=== PATIENT | female | born 1990 ===

== ENCOUNTER 2016-07-16 05:50 | Inpatient (IN) | payer SELFPAY ==
[2016-07-16] VITALS (8 sets, daily range): BP systolic 110–130; BP diastolic 50–84
[~2016-07-16] VITALS: Ht 170.2 cm; Wt 117.2 kg
[2016-07-16] MEDS ORDERED: ONDANSETRON PF 4 MG/2 ML VIAL. IV PRN ×2 (08:45→12:00)
--- NOTE | 2016-07-16 08:52 | PDOC2 ---
JOSTIN COELLO TITLE INSURANCE EXAMINER 07/16/16 0852: CONSULT Date of Consult Date of Consult DATE: 07/16/16 TIME: 08:46 Reason for Consult Reason for Consult: cholelithiasis Referring Physician Referring Physician: [facility] ER Identification/Chief Complaint Chief Complaint abdominal pain Source Source: Chart review, Patient History of Present Illness Reason for Visit: Admitted wtih epigastric and RUQ pain for 3 days. Last night developed vomiting. Denies aggravated by eating, only relieving factor is pain medication. Denies similar pain in past. 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 No ALCOHOL: none Drugs: None Lives: with Family Current Medications Current Medications Current Medications Sodium Chloride 1,000 ml @ 100 mls/hr Q10H IV ; Start 07/16/16 at 08:45 Morphine Sulfate 2 mg PRN Q2HR PRN IV PAIN; Start 07/16/16 at 08:45 Ondansetron HCl (Zofran) 4 mg PRN Q6HRS PRN IV NAUSEA/VOMITING; Start 07/16/16 at 08:45 Allergies Allergies: Coded Allergies: No Known Drug Allergies (Unverified , 07/16/16) ROS General: No: Chills, Other (fevers ) PSYCHOLOGICAL ROS: No: Anxiety, Depression Eyes: No Blurry vision, No Double vision HEENT: No: Heacaches, Sore Throat Hematological and Lymphatic: No: Bleeding Problems, Blood Clots Respiratory: No: Cough, SOB with excertion Cardiovascular: No Chest Pain, No Palpitations Gastrointestinal: Yes Other (see hpi) Genitourinary: No Dysuria, No Hematuria Musculoskeletal: Yes Other (+ radiation of pain to back ), No Joint Pain, No Muscle Pain Neurological: No Confusion, No Numbness/Tingling Skin: No Mottling, No Pruritus Physical Exam General: Alert, Oriented X3, Cooperative, No acute distress HEENT: PERRLA, Mucous membr. moist/pink Lungs: Clear to auscultation, Normal air movement Heart: Regular rate, Normal S1, Normal S2, No murmurs Abdomen: Soft, Other (ND, obese abdomen, greatest tenderness to epigastric, however also tender to RUQ, LUQ) Extremities: No clubbing, No cyanosis Skin: No breakdown, No significant lesion Neuro: Normal speech, Sensation intact Psych/Mental Status: Mental status NL, Mood NL MUSCULOSKELETAL: No deformity, No swelling Assessment/Plan Assessment/Plan US reviewed from [facility]--symptomatic cholelithiasis with nonmobile stone in neck of GB, dilated CBD and thickened gallbladder wall morbid obesity with BMI 40.5 will plan lap hector NPO since 4 am TIN RATLIFF MD 07/16/16 1211: CONSULT Allergies Allergies: Coded Allergies: No Known Drug Allergies (Unverified , 07/16/16) Assessment/Plan Assessment/Plan Pt seen and examined independently by myself; 25 year old female who reported to ER with acute onset of RUQ pain, vomiting. Pt has never had prior attacks. ER evaluation included a sonogram consistent with cholecystitis. PMH/PSH/ROS/ SH as above; exam: alert, oriented, drowsy from pain meds, no scleral icterus , neck supple, heart RR and R, lungs clear, abdomen morbidly obese, soft, tender RUQ with guarding, no masses, ext neg for edema or deformity, neuro motor function grossly intact all 4 extremities. Labs and sono reviewed; A/P) Calculous cholecystitis, ?bile duct dilation, recommend lap hector with cholangiogram. I discussed the details and risks of surgery with the patient. She understands and would like to proceed. JOSTIN COELLO APRN Jul 16, 2016 08:52 TIN RATLIFF MD Jul 16, 2016 12:11
[2016-07-16] MEDS: MORPHINE SULFATE 2 MG/ML DISP.SYRIN. IV PRN ×3 (09:16→16:14)
[2016-07-16] MEDS: IV NORMAL SALINE 1000ML BAG 1,000 ML IV SCH ×2 (09:17→18:20)
[2016-07-16 09:29] LABS: BASO % 0 % (0-3); EOS % 0 % (0-3); HEMATOCRIT 37.1 % (36.0-47.0); HEMOGLOBIN 12.7 g/dL (12.0-15.5); LYMPH # 1.2 x10^3/uL (1.0-4.8); LYMPH % 10 % (24-48); MEAN CORPUSCULAR HEMOGLOBIN 29 pg (25-35); MEAN CORPUSCULAR HGB CONC 34 g/dL (31-37); MEAN CORPUSCULAR VOLUME 84 fL (79-100); MONO % 6 % (0-9); NEUT % 84 % (31-73); PLATELET COUNT 163 x10^3/uL (140-400); RED BLOOD COUNT 4.41 x10^6/uL (3.50-5.40); RED CELL DISTRIBUTION WIDTH 12.7 % (11.5-14.5); WHITE BLOOD COUNT 11.9 x10^3/uL (4.0-11.0)
[2016-07-16 09:52] LABS: ALBUMIN 3.5 g/dL (3.4-5.0); ALBUMIN/GLOBULIN RATIO 0.9 (1.0-1.7); CALCIUM 8.7 mg/dL (8.5-10.1); CREATININE 0.7 mg/dL (0.6-1.0); GFR 102.8; POTASSIUM 3.9 mmol/L (3.5-5.1); TOTAL BILIRUBIN 0.4 mg/dL (0.2-1.0); TOTAL PROTEIN 7.3 g/dL (6.4-8.2)
[2016-07-16] MEDS ORDERED: IV RINGERS,LACTATED 1000ML 1,000 ML IV SCH (11:57)
[2016-07-16] MEDS ORDERED: MORPHINE SULFATE 2 MG/ML DISP.SYRIN. IV PRN (12:00)
[2016-07-16] MEDS ORDERED: LIDOCAINE 1% 1 ML SYRINGE. ID PRN (12:00)
[2016-07-16] MEDS ORDERED: fentaNYL PF VIAL 100 MCG/2 ML VIAL IV PRN ×2 (12:00)
[2016-07-16] MEDS ORDERED: HYDROmorphone 2 MG/ML VIAL IV PRN (12:00)
[2016-07-16] MEDS ORDERED: PROCHLORPERAZINE 10 MG/2 ML VIAL. IV PRN (12:00)
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
[2016-07-16] MEDS ORDERED: PROPOFOL 20 ML IV ONE ×2 (12:03→13:32)
[2016-07-16] MEDS ORDERED: SEVOFLURANE 61 TO 120 MINUTES. IH ONE (12:03)
[2016-07-16] MEDS ORDERED: ROCURONIUM 50 MG/5 ML VIAL. ONE (12:03)
[2016-07-16] MEDS ORDERED: fentaNYL PF VIAL 250 MCG/5 ML VIAL ONE (12:03)
[2016-07-16] MEDS ORDERED: DEXAMETHASONE SOD PHOS 20 MG/5 ML VIAL. ONE (12:03)
[2016-07-16] MEDS ORDERED: ONDANSETRON PF 4 MG/2 ML VIAL. ONE (12:03)
[2016-07-16] MEDS ORDERED: LIDOCAINE 2% PF Vial for OR 5 ML VIAL. ONE (12:03)
[2016-07-16] MEDS ORDERED: BUPIVAC MPF-EPI 0.5%-1:200000 30 ML VIAL. ONE (12:05)
[2016-07-16] MEDS ORDERED: SURGICEL HEMOSTAT 4X8 EACH. ONE (12:05)
[2016-07-16] MEDS ORDERED: IOHEXOL 300 MG/ML 50 ML VIAL. ONE (12:05)
--- NOTE | 2016-07-16 13:30 | RAD ---
Intraoperative cholangiogram, 07/16/2016: History: Cholecystectomy 5 spot films from surgery are presented for review. Contrast has been injected into the cystic duct remnant. 40 seconds of fluoroscopy time was utilized. There is good flow of contrast into the duodenum at the ampulla. The common duct appears to be mildly enlarged. There is a small lucency in the distal common bile duct near the ampulla which persists on all these images. The appearance suggests a tiny common duct calculus versus an air bubble. The incompletely opacified intrahepatic bile ducts are unremarkable. No contrast extravasation is evident. IMPRESSION: Possible small distal common bile duct calculus.
[2016-07-16] MEDS ORDERED: NEOSTIGMINE 10 MG/10 ML VIAL. ONE (13:44)
[2016-07-16] MEDS ORDERED: GLYCOPYRROLATE 1 MG/5 ML VIAL. ONE (13:45)
[2016-07-16] MEDS ORDERED: NEOSTIGMINE METHYLSULFATE 5 MG/5 ML SYRINGE. ONE (13:45)
--- NOTE | 2016-07-16 13:51 | PDOC4 ---
Operative Note Operative Note Operative Note: Preoperative Diagnosis: Acute cholecystitis Postoperative Diagnosis: Same Procedure: Laparoscopic cholecystectomy with intraoperative cholangiogram Surgeons: [facility] Nurse: Conchita MCGOVERN Anesthesia: Gen. Estimated Blood Loss: 20 mL Specimen: Gallbladder to pathology Drains: None Complications: None Indications: The patient is a 25-year-old female who reported to the emergency department with upper abdominal and right upper quadrant pain. Her evaluation was consistent with acute cholecystitis. Surgical treatment was offered by means of a laparoscopic cholecystectomy. The risks of surgery were discussed which include bleeding, infection, bile duct injury, bile leak, pain, the potential for additional surgeries or procedures. The patient understands and would like to proceed. Description: The patient was taken to the operating room and laid supine on the operating table. General anesthesia was performed. The abdomen was prepped with ChloraPrep and draped in a standard surgical fashion. A small infraumbilical incision was made with a scalpel. The Veress needle was then inserted and a pneumoperitoneum was then created. A 5 mm trocar was then inserted and the laparoscope was introduced. In the upper midabdomen a 5 mm trocar was inserted and in the right upper quadrant two 2.3 mm mini lap graspers were inserted. The gallbladder was markedly distended and tense. Using an aspirating needle approximately 50 mL of yellowish fluid was aspirated providing decompression of the gallbladder. The gallbladder was then retracted cephalad. We began dissecting along the inferior aspect of the gallbladder. There was significant inflammatory change and fibrosis present. The cystic duct was identified and dissected free from surrounding tissues. The cystic duct appeared fairly dilated and moderate sized stones were present in the duct. I was able to milk the stones back into the gallbladder. The upper abdominal 5 mm trocar was exchanged with a 12 mm trocar. One arch clip was placed on the cystic duct near the gallbladder junction. An opening was made in the duct and a cholangiocatheter placed within and secured with a clip. Using contrast dye and fluoroscopy an intraoperative cholangiogram was performed. The common bile duct appeared mildly dilated however contrast readily passed into the duodenum. There was a very small lucency in the distal common duct consistent with either a very small stone versus air bubble. The clip and catheter were then withdrawn. Three clips were placed on the cystic duct and it was divided. The cystic artery was then identified, dissected free, doubly clipped and divided as well. The gallbladder was then mobilized away from the liver with cautery. The gallbladder was then placed in an endoscopic bag and extracted at the superior abdominal trocar site. The fascia there was closed with 0 Vicryl sutures, and the fascial closure was injected with half percent Marcaine with epinephrine. All blood and irrigation fluid was suctioned and hemostasis was good. The remaining ports were removed and the pneumoperitoneum was relieved. The skin incisions were closed using 4-0 Monocryl suture. Steri-Strips and dressings were then applied. The patient tolerated the procedure well and was sent to the recovery room in stable condition. At the end of the case all counts were correct. TIN RATLIFF MD Jul 16, 2016 13:51
--- NOTE | 2016-07-16 15:47 | PDOC2 ---
GI CONSULT Reason For Consult: Small CBD filling defect HPI: HPI: 25 y/o female who underwent cholecystectomy this afternoon w/ Dr. Hernandez for cholelithiasis and cholecystitis. IOC showed possible small distal common bile duct calculus, hence GI consult. She is seen in her regular room just back from PACU, still drowsy. She has some post-op type discomfort that is different from the epigastric and BUQ pain w/ radiation to her back that originally brought her to [facility] ER. Had this pain intermittently x 2 weeks, associated w/ n/v. Denies reflux/heartburn, diarrhea, constipation. Abd US at [facility] showed cholelithiasis and dilated CBD at 1.2cm w/ thickened GB and fatty liver. LFTs have been normal. PMH: PMH: cholecystectomy, tonsillectomy FH: Family History: No pertinent hx (no GI cancers) Social History: Smoke: Quit ALCOHOL: none Drugs: None ROS: GEN: Denies fevers, chills, sweats HEENT: Denies blurred vision, sore throat CV: Denies chest pain RESP: Denies shortness of air, cough GI: Per HPI : Denies hematuria, dysuria ENDO: Denies weight changes NEURO: Denies confusion, dizziness MSK: Denies weakness, joint pain/swelling SKIN: Denies jaundice, pruritus Vitals: Vitals: Vital Signs Date Time Temp Pulse Resp B/P (MAP) Pulse Ox O2 Delivery O2 Flow Rate FiO2 07/16/16 14:57 98.4 72 17 134/73 94 Room Air 98.4 07/16/16 14:27 8 Labs: Labs: Laboratory Tests Test 07/16/16 09:10 White Blood Count 11.9 x10^3/uL (4.0-11.0) Red Blood Count 4.41 x10^6/uL (3.50-5.40) Hemoglobin 12.7 g/dL (12.0-15.5) Hematocrit 37.1 % (36.0-47.0) Mean Corpuscular Volume 84 fL (79-100) Mean Corpuscular Hemoglobin 29 pg (25-35) Mean Corpuscular Hemoglobin Concent 34 g/dL (31-37) Red Cell Distribution Width 12.7 % (11.5-14.5) Platelet Count 163 x10^3/uL (140-400) Neutrophils (%) (Auto) 84 % (31-73) Lymphocytes (%) (Auto) 10 % (24-48) Monocytes (%) (Auto) 6 % (0-9) Eosinophils (%) (Auto) 0 % (0-3) Basophils (%) (Auto) 0 % (0-3) Neutrophils # (Auto) 10.0 x10^3uL (1.8-7.7) Lymphocytes # (Auto) 1.2 x10^3/uL (1.0-4.8) Monocytes # (Auto) 0.7 x10^3/uL (0.0-1.1) Eosinophils # (Auto) 0.0 x10^3/uL (0.0-0.7) Basophils # (Auto) 0.0 x10^3/uL (0.0-0.2) Sodium Level 141 mmol/L (136-145) Potassium Level 3.9 mmol/L (3.5-5.1) Chloride Level 104 mmol/L (98-107) Carbon Dioxide Level 24 mmol/L (21-32) Anion Gap 13 (6-14) Blood Urea Nitrogen 9 mg/dL (7-20) Creatinine 0.7 mg/dL (0.6-1.0) Estimated GFR (Cockcroft-Gault) 102.8 BUN/Creatinine Ratio 13 (6-20) Glucose Level 121 mg/dL (70-99) Calcium Level 8.7 mg/dL (8.5-10.1) Total Bilirubin 0.4 mg/dL (0.2-1.0) Aspartate Amino Transf (AST/SGOT) 33 U/L (15-37) Alanine Aminotransferase (ALT/SGPT) 31 U/L (14-59) Alkaline Phosphatase 63 U/L (46-116) Total Protein 7.3 g/dL (6.4-8.2) Albumin 3.5 g/dL (3.4-5.0) Albumin/Globulin Ratio 0.9 (1.0-1.7) Allergies: Coded Allergies: No Known Drug Allergies (Unverified , 07/16/16) Medications: Current Medications Medications (Trade) Dose Ordered Sig/Carl Route PRN Reason Start Time Stop Time Status Last Admin Dose Admin Sodium Chloride 1,000 ml @ 100 mls/hr Q10H IV 07/16/16 08:45 07/16/16 09:17 Morphine Sulfate 2 mg PRN Q2HR PRN IV PAIN 07/16/16 08:45 07/16/16 10:54 Cefazolin Sodium/ Dextrose 50 ml @ 100 mls/hr 1X PREOP PRN IV weight reduction specialist to OR 07/16/16 11:15 07/16/16 12:40 Morphine Sulfate 1 mg PRN Q10MIN PRN IV SEVERE PAIN 07/16/16 12:00 07/17/16 11:59 07/16/16 14:41 Ringer's Solution 1,000 ml @ 0 mls/hr Q0M IV 07/16/16 11:57 07/16/16 23:56 07/16/16 12:26 Bupivacaine HCl/ Epinephrine Bitart (Sensorcain-Mpf Epi 0.5%-1:738931) 30 ml STK-MED ONCE .ROUTE 07/16/16 12:05 07/16/16 12:06 DC 07/16/16 12:51 Iohexol (Omnipaque 300 Mg/ml) 50 ml STK-MED ONCE .ROUTE 07/16/16 12:05 07/16/16 12:06 DC 07/16/16 12:51 Imaging: Imaging: IOC 07/16/16 IMPRESSION: Possible small distal common bile duct calculus. PE: GEN: NAD HEENT: Atraumatic, PERRL LUNGS: CTAB anteriorly HEART: RRR ABD: BS+, soft, tender EXTREMITY: No edema SKIN: No rashes, no jaundice NEURO/PSYCH: A & O 3, drowsy A/P: A/P: S/p cholecystectomy for cholelithiasis, cholecystitis Abnormal IOC Upper abd and back pain, n/v -- Possible CBD stone w/ normal LFTs. Will review w/ Dr. Medrano ?plans for ERCP. KADEN FREITAS Jul 16, 2016 15:47
[2016-07-16] MEDS: oxyCODONE/APAP 5/325 1 TAB TABLET PO PRN (19:43)
[2016-07-17 03:00] VITALS: BP 116/75
[2016-07-17] MEDS: IV NORMAL SALINE 1000ML BAG 1,000 ML IV SCH ×2 (04:45→14:45)
[2016-07-17 05:58] LABS: ALBUMIN 3.1 g/dL (3.4-5.0); DIRECT BILIRUBIN 0.2 mg/dL (0.0-0.2); TOTAL BILIRUBIN 0.6 mg/dL (0.2-1.0); TOTAL PROTEIN 6.7 g/dL (6.4-8.2)
[2016-07-17 07:00] VITALS: BP 112/75
[2016-07-17] MEDS: oxyCODONE/APAP 5/325 1 TAB TABLET PO PRN ×3 (07:39→18:00)
--- NOTE | 2016-07-17 09:46 | PDOC ---
Subjective: Subjective: Feeling better, still tired. Incisional pain. Tolerated PO last night and this morning. Objective: Vital Signs: Vital Signs Date Time Temp Pulse Resp B/P (MAP) Pulse Ox O2 Delivery O2 Flow Rate FiO2 07/17/16 07:00 97.7 97 14 112/75 (87) 94 Room Air 97.7 07/16/16 14:27 8 Labs: Laboratory Tests Test 07/17/16 04:55 Total Bilirubin 0.6 mg/dL Direct Bilirubin 0.2 mg/dL Aspartate Amino Transf (AST/SGOT) 30 U/L Alanine Aminotransferase (ALT/SGPT) 41 U/L Alkaline Phosphatase 51 U/L Total Protein 6.7 g/dL Albumin 3.1 g/dL PE: GEN: NAD LUNGS: CTAB HEART: RRR ABD: obese, incisional tenderness (mild) NEURO/PSYCH: A & O 3, more awake today A/P: S/p cholecystectomy for cholelithiasis, cholecystitis Abnormal IOC -- LFTs still normal, pain better. Other per Dr. Medrano re: ?plans for ERCP tomorrow. D/w RN. KADEN FREITAS Jul 17, 2016 09:46
[2016-07-17 11:00] VITALS: BP 106/62
--- NOTE | 2016-07-17 11:26 | PDOC ---
PROGRESS NOTES Subjective Subjective doing better, no problems Objective Objective Vital Signs Date Time Temp Pulse Resp B/P (MAP) Pulse Ox O2 Delivery O2 Flow Rate FiO2 07/17/16 07:00 97.7 97 14 112/75 (87) 94 Room Air 97.7 07/16/16 14:27 8 Intake and Output 07/17/16 07:00 Intake Total 0 ml Output Total 2220 ml Balance -2220 ml Intake Oral 0 ml Output Urine Total 2200 ml Estimated Blood Loss 20 ml # Voids 4 Physical Exam Physical Exam abdomen soft Plan Plan of Care LFTs look good, ok to discharge, pain script in chart; FU with me in 2 weeks in office Comment Review of Relevant I have reviewed the following items ailyn (where applicable) has been applied. Labs Laboratory Tests Test 07/16/16 09:10 07/17/16 04:55 White Blood Count 11.9 x10^3/uL (4.0-11.0) Red Blood Count 4.41 x10^6/uL (3.50-5.40) Hemoglobin 12.7 g/dL (12.0-15.5) Hematocrit 37.1 % (36.0-47.0) Mean Corpuscular Volume 84 fL (79-100) Mean Corpuscular Hemoglobin 29 pg (25-35) Mean Corpuscular Hemoglobin Concent 34 g/dL (31-37) Red Cell Distribution Width 12.7 % (11.5-14.5) Platelet Count 163 x10^3/uL (140-400) Neutrophils (%) (Auto) 84 % (31-73) Lymphocytes (%) (Auto) 10 % (24-48) Monocytes (%) (Auto) 6 % (0-9) Eosinophils (%) (Auto) 0 % (0-3) Basophils (%) (Auto) 0 % (0-3) Neutrophils # (Auto) 10.0 x10^3uL (1.8-7.7) Lymphocytes # (Auto) 1.2 x10^3/uL (1.0-4.8) Monocytes # (Auto) 0.7 x10^3/uL (0.0-1.1) Eosinophils # (Auto) 0.0 x10^3/uL (0.0-0.7) Basophils # (Auto) 0.0 x10^3/uL (0.0-0.2) Sodium Level 141 mmol/L (136-145) Potassium Level 3.9 mmol/L (3.5-5.1) Chloride Level 104 mmol/L (98-107) Carbon Dioxide Level 24 mmol/L (21-32) Anion Gap 13 (6-14) Blood Urea Nitrogen 9 mg/dL (7-20) Creatinine 0.7 mg/dL (0.6-1.0) Estimated GFR (Cockcroft-Gault) 102.8 BUN/Creatinine Ratio 13 (6-20) Glucose Level 121 mg/dL (70-99) Calcium Level 8.7 mg/dL (8.5-10.1) Total Bilirubin 0.4 mg/dL (0.2-1.0) 0.6 mg/dL (0.2-1.0) Aspartate Amino Transf (AST/SGOT) 33 U/L (15-37) 30 U/L (15-37) Alanine Aminotransferase (ALT/SGPT) 31 U/L (14-59) 41 U/L (14-59) Alkaline Phosphatase 63 U/L (46-116) 51 U/L (46-116) Total Protein 7.3 g/dL (6.4-8.2) 6.7 g/dL (6.4-8.2) Albumin 3.5 g/dL (3.4-5.0) 3.1 g/dL (3.4-5.0) Albumin/Globulin Ratio 0.9 (1.0-1.7) Direct Bilirubin 0.2 mg/dL (0.0-0.2) Laboratory Tests Test 07/17/16 04:55 Total Bilirubin 0.6 mg/dL (0.2-1.0) Direct Bilirubin 0.2 mg/dL (0.0-0.2) Aspartate Amino Transf (AST/SGOT) 30 U/L (15-37) Alanine Aminotransferase (ALT/SGPT) 41 U/L (14-59) Alkaline Phosphatase 51 U/L (46-116) Total Protein 6.7 g/dL (6.4-8.2) Albumin 3.1 g/dL (3.4-5.0) Medications Current Medications Sodium Chloride 1,000 ml @ 100 mls/hr Q10H IV Last administered on 07/16/16t 18 :20; Start 6/6/17 at 08:45 Morphine Sulfate 2 mg PRN Q2HR PRN IV PAIN Last administered on 07/16/16 16:14 ; Start 07/16/16 at 08:45 Ondansetron HCl (Zofran) 4 mg PRN Q6HRS PRN IV NAUSEA/VOMITING; Start 07/16/16 at 08:45 Cefazolin Sodium/ Dextrose 50 ml @ 100 mls/hr 1X PREOP PRN IV medical scientific liaison to OR Last administered on 07/16/16 12:40; Start 07/16/16 at 11:15 Ondansetron HCl (Zofran) 4 mg PRN Q6HRS PRN IV NAUSEA/VOMITING; Start 07/16/16 at 12:00; Stop 07/17/16 at 11:59 Fentanyl Citrate (Fentanyl 2ml Vial) 25 mcg PRN Q5MIN PRN IV MILD PAIN; Start 07/16/16 at 12:00; Stop 07/17/16 at 11:59 Fentanyl Citrate (Fentanyl 2ml Vial) 50 mcg PRN Q5MIN PRN IV MODERATE PAIN; Start 07/16/16 at 12:00; Stop 07/17/16 at 11:59 Morphine Sulfate 1 mg PRN Q10MIN PRN IV SEVERE PAIN Last administered on 14:41; Start 07/16/16 at 12:00; Stop 07/17/16 at 11:59 Ringer's Solution 1,000 ml @ 0 mls/hr Q0M IV Last administered on 07/16/16 12: 26; Start 07/16/16 at 11:57; Stop 07/16/16 at 23:56; Status DC Lidocaine HCl 2 ml PRN 1X PRN ID PRIOR TO IV START; Start 07/16/16 at 12:00; Stop 07/17/16 at 11:59 Hydromorphone HCl (Dilaudid) 0.5 mg PRN Q10MIN PRN IV SEV PAIN, Second choice; Start 07/16/16 at 12:00; Stop 07/17/16 at 11:59 Prochlorperazine Edisylate (Compazine) 5 mg PACU PRN PRN IV NAUSEA, MRX1; Start 07/16/16 at 12:00; Stop 07/17/16 at 11:59 Fentanyl Citrate (Fentanyl 5ml Vial) 250 mcg STK-MED ONCE .ROUTE ; Start at 12:03; Stop 07/16/16 at 12:04; Status DC Rocuronium [place] (Zemuron) 50 mg STK-MED ONCE .ROUTE ; Start 07/16/16 at 12:03 ; Stop 07/16/16 at 12:04; Status DC Dexamethasone Sodium Phosphate (Decadron) 20 mg STK-MED ONCE .ROUTE ; Start 07/16 at 12:03; Stop 07/16/16 at 12:04; Status DC Ondansetron HCl (Zofran) 4 mg STK-MED ONCE .ROUTE ; Start 07/16/16 at 12:03; Stop 07/16/16 at 12:04; Status DC Propofol 20 ml @ As Directed STK-MED ONCE IV ; Start 07/16/16 at 12:03; Stop 07/16 at 12:04; Status DC Lidocaine HCl (Lidocaine Pf 2% Vial) 5 ml STK-MED ONCE .ROUTE ; Start 07/16/16 at 12:03; Stop 07/16/16 at 12:04; Status DC Sevoflurane (Ultane) 60 ml STK-MED ONCE IH ; Start 07/16/16 at 12:03; Stop at 12:04; Status DC Cellulose 1 each STK-MED ONCE .ROUTE ; Start 07/16/16 at 12:05; Stop 07/16/16 at 12:06; Status DC Bupivacaine HCl/ Epinephrine Bitart (Sensorcain-Mpf Epi 0.5%-1:623194) 30 ml STK -MED ONCE .ROUTE Last administered on 07/16/16 12:51; Start 07/16/16 at 12:05; Stop 07/16/16 at 12:06; Status DC Iohexol (Omnipaque 300 Mg/ml) 50 ml STK-MED ONCE .ROUTE Last administered on 12:51; Start 07/16/16 at 12:05; Stop 07/16/16 at 12:06; Status DC Propofol 20 ml @ As Directed STK-MED ONCE IV ; Start 07/16/16 at 13:32; Stop 07/16 at 13:33; Status DC Neostigmine Methylsulfate (Bloxiverz) 10 mg STK-MED ONCE .ROUTE ; Start 07/16/16 at 13:44; Stop 07/16/16 at 13:45; Status DC Glycopyrrolate (Robinul) 1 mg STK-MED ONCE .ROUTE ; Start 07/16/16 at 13:45; Stop 07/16/16 at 13:46; Status DC Neostigmine Methylsulfate 5 mg STK-MED ONCE .ROUTE ; Start 07/16/16 at 13:45; Stop 07/16/16 at 13:46; Status DC Oxycodone/ Acetaminophen (Percocet 5/325) 1 tab PRN Q4HRS PRN PO PAIN Last administered on 07/16/16 19:43; Start 07/16/16 at 14:00 Oxycodone/ Acetaminophen (Percocet 5/325) 2 tab PRN Q4HRS PRN PO PAIN Last administered on 07/17/16 07:39; Start 07/16/16 at 14:00 Levofloxacin/ Dextrose 100 ml @ 100 mls/hr 1X ONCE IV ; Start 07/18/16 at 09:00 ; Stop 07/18/16 at 09:59 Vitals/I & O Vital Sign - Last 24 Hours 07/16/16 07/16/16 07/16/16 07/16/16 12:04 13:57 14:00 14:12 Temp 97.7 98.7 98.7 97.7 98.7 98.7 Pulse 80 82 81 Resp 20 19 18 B/P (MAP) 125/87 142/72 139/73 Pulse Ox 96 100 100 O2 Delivery Room Air Simple Mask Mask Simple Mask O2 Flow Rate 8 8 8 07/16/16 07/16/16 07/16/16 07/16/16 14:27 14:41 14:42 14:57 Temp 98.7 98.7 98.4 98.7 98.7 98.4 Pulse 77 72 72 Resp 20 17 17 B/P (MAP) 135/80 142/72 134/73 Pulse Ox 100 95 95 94 O2 Delivery Simple Mask Room Air Room Air Room Air O2 Flow Rate 8 07/16/16 07/16/16 07/16/16 07/16/16 15:45 15:52 16:46 17:44 Temp 97.5 97.9 98.6 98.6 97.5 97.9 98.6 98.6 Pulse 81 87 83 116 Resp 20 20 20 20 B/P (MAP) 123/50 (74) 121/71 (88) 130/84 (99) 119/82 (94) Pulse Ox 97 93 94 91 O2 Delivery Room Air Room Air Room Air Room Air 07/16/16 07/16/16 07/16/16 07/16/16 19:00 19:43 19:49 21:15 Temp 98.6 98.6 Pulse 90 Resp 20 B/P (MAP) 112/68 (83) Pulse Ox 94 O2 Delivery Room Air Room Air Room Air Room Air 07/16/16 07/17/16 07/17/16 23:00 03:00 07:00 Temp 98.5 97.6 97.7 98.5 97.6 97.7 Pulse 120 108 97 Resp 18 18 14 B/P (MAP) 110/73 (85) 116/75 (89) 112/75 (87) Pulse Ox 95 97 94 O2 Delivery Room Air Room Air Room Air Intake and Output 07/16/16 07/16/16 07/17/16 15:00 23:00 07:00 Intake Total 0 ml Output Total 120 ml 600 ml 1500 ml Balance -120 ml -600 ml -1500 ml TIN RATLIFF MD Jul 17, 2016 11:26
[2016-07-17 12:18] LABS: INR 1.1 (0.8-1.1); PROTHROMBIN TIME PATIENT 13.2 SEC (11.7-14.0)
[2016-07-17 15:00] VITALS: BP 104/63
--- NOTE | 2016-07-17 17:01 | PDOC ---
PROGRESS NOTES Chief Complaint Chief Complaint Cholecystitis ASSESSMENT AND PLAN: 1. Cholecystitis: s/p lap CCY on 07/[address] Hernandez. recovering appropriately , although persistent ain. plan for ERCP for suspected stone in CBD 2. Nausea: improved, tolerating PO diet. antiemetics PRN 3. ?GERD: start PPI 4. Prophylaxis: hold lovenox with anticipated procedure in AM. SCDs History of Present Illness History of Present Illness pain controlled to some degree. had sensation of food stuck under xiphoid after eating. Vitals Vitals Vital Signs Date Time Temp Pulse Resp B/P (MAP) Pulse Ox O2 Delivery O2 Flow Rate FiO2 07/17/16 11:00 98.3 87 14 106/62 (77) 95 Room Air 98.3 07/16/16 14:27 8 Physical Exam General: Alert, Oriented X3, Cooperative, No acute distress Heart: Regular rate, Normal S1, Normal S2, No murmurs Lungs: Clear Abdomen: Soft, Other (lap incisions covered with gauze bandaids, no blood. mild generalized TTP) Extremities: No clubbing, No cyanosis Skin: No rashes Labs LABS Laboratory Tests Test 07/17/16 04:55 07/17/16 11:50 Total Bilirubin 0.6 mg/dL (0.2-1.0) Direct Bilirubin 0.2 mg/dL (0.0-0.2) Aspartate Amino Transf (AST/SGOT) 30 U/L (15-37) Alanine Aminotransferase (ALT/SGPT) 41 U/L (14-59) Alkaline Phosphatase 51 U/L (46-116) Total Protein 6.7 g/dL (6.4-8.2) Albumin 3.1 g/dL (3.4-5.0) Prothrombin Time 13.2 SEC (11.7-14.0) Prothromb Time International Ratio 1.1 (0.8-1.1) SOFIA AC MD Jul 17, 2016 17:01
[2016-07-17] MEDS: PANTOPRAZOLE 40 MG TABLET.DR. PO SCH (18:00)
[2016-07-17 19:00] VITALS: BP 108/69
[2016-07-17] MEDS: MORPHINE SULFATE 2 MG/ML DISP.SYRIN. IV PRN (20:43)
[2016-07-17 23:00] VITALS: BP 115/70
[2016-07-18] VITALS (10 sets, daily range): BP systolic 96–130; BP diastolic 60–85
[2016-07-18] MEDS: IV NORMAL SALINE 1000ML BAG 1,000 ML IV SCH ×2 (00:49→10:59)
[2016-07-18] MEDS: IV RINGERS,LACTATED 1000ML 1,000 ML IV SCH ×2 (07:00→12:38)
[2016-07-18] MEDS: PANTOPRAZOLE 40 MG TABLET.DR. PO SCH (07:30)
[2016-07-18 09:02] LABS: BASO % 0 % (0-3); EOS % 1 % (0-3); HEMATOCRIT 32.6 % (36.0-47.0); HEMOGLOBIN 11.3 g/dL (12.0-15.5); LYMPH # 2.6 x10^3/uL (1.0-4.8); LYMPH % 37 % (24-48); MEAN CORPUSCULAR HEMOGLOBIN 30 pg (25-35); MEAN CORPUSCULAR HGB CONC 35 g/dL (31-37); MEAN CORPUSCULAR VOLUME 85 fL (79-100); MONO % 11 % (0-9); NEUT % 50 % (31-73); PLATELET COUNT 148 x10^3/uL (140-400); RED BLOOD COUNT 3.82 x10^6/uL (3.50-5.40); RED CELL DISTRIBUTION WIDTH 13.1 % (11.5-14.5)
[2016-07-18 09:23] LABS: ALBUMIN/GLOBULIN RATIO 0.9 (1.0-1.7); CALCIUM 8.1 mg/dL (8.5-10.1); CREATININE 0.7 mg/dL (0.6-1.0); GFR 102.8; POTASSIUM 3.8 mmol/L (3.5-5.1); TOTAL BILIRUBIN 0.3 mg/dL (0.2-1.0); TOTAL PROTEIN 6.3 g/dL (6.4-8.2)
[2016-07-18] MEDS ORDERED: IOHEXOL 300 MG/ML 100ML VIAL. ONE (11:31)
--- NOTE | 2016-07-18 11:38 | PDOC ---
SURGICAL PROGRESS NOTE Subjective anxious for procedure pain managed tolerated diet yesterday Vital Signs Vital Signs Date Time Temp Pulse Resp B/P (MAP) Pulse Ox O2 Delivery O2 Flow Rate FiO2 07/18/16 11:00 97.7 76 20 108/72 (84) 96 Room Air 97.7 07/17/16 21:13 8.0 I&O Intake and Output 07/18/16 06:59 Intake Total 600 ml Output Total 800 ml Balance -200 ml IV Total 600 ml Output Urine Total 800 ml # Voids 4 General: Alert, Oriented X3, Cooperative, No acute distress Abdomen: Soft, Other (incisional TTP) Labs Laboratory Tests Test 07/17/16 04:55 07/17/16 11:50 07/18/16 08:35 Total Bilirubin 0.6 mg/dL (0.2-1.0) 0.3 mg/dL (0.2-1.0) Direct Bilirubin 0.2 mg/dL (0.0-0.2) Aspartate Amino Transf (AST/SGOT) 30 U/L (15-37) 183 U/L (15-37) Alanine Aminotransferase (ALT/SGPT) 41 U/L (14-59) 186 U/L (14-59) Alkaline Phosphatase 51 U/L (46-116) 54 U/L (46-116) Total Protein 6.7 g/dL (6.4-8.2) 6.3 g/dL (6.4-8.2) Albumin 3.1 g/dL (3.4-5.0) 3.0 g/dL (3.4-5.0) Prothrombin Time 13.2 SEC (11.7-14.0) Prothromb Time International Ratio 1.1 (0.8-1.1) White Blood Count 7.0 x10^3/uL (4.0-11.0) Red Blood Count 3.82 x10^6/uL (3.50-5.40) Hemoglobin 11.3 g/dL (12.0-15.5) Hematocrit 32.6 % (36.0-47.0) Mean Corpuscular Volume 85 fL (79-100) Mean Corpuscular Hemoglobin 30 pg (25-35) Mean Corpuscular Hemoglobin Concent 35 g/dL (31-37) Red Cell Distribution Width 13.1 % (11.5-14.5) Platelet Count 148 x10^3/uL (140-400) Neutrophils (%) (Auto) 50 % (31-73) Lymphocytes (%) (Auto) 37 % (24-48) Monocytes (%) (Auto) 11 % (0-9) Eosinophils (%) (Auto) 1 % (0-3) Basophils (%) (Auto) 0 % (0-3) Neutrophils # (Auto) 3.5 x10^3uL (1.8-7.7) Lymphocytes # (Auto) 2.6 x10^3/uL (1.0-4.8) Monocytes # (Auto) 0.8 x10^3/uL (0.0-1.1) Eosinophils # (Auto) 0.1 x10^3/uL (0.0-0.7) Basophils # (Auto) 0.0 x10^3/uL (0.0-0.2) Sodium Level 144 mmol/L (136-145) Potassium Level 3.8 mmol/L (3.5-5.1) Chloride Level 109 mmol/L (98-107) Carbon Dioxide Level 30 mmol/L (21-32) Anion Gap 5 (6-14) Blood Urea Nitrogen 10 mg/dL (7-20) Creatinine 0.7 mg/dL (0.6-1.0) Estimated GFR (Cockcroft-Gault) 102.8 BUN/Creatinine Ratio 14 (6-20) Glucose Level 79 mg/dL (70-99) Calcium Level 8.1 mg/dL (8.5-10.1) Albumin/Globulin Ratio 0.9 (1.0-1.7) Laboratory Tests Test 07/17/16 11:50 07/18/16 08:35 Prothrombin Time 13.2 SEC (11.7-14.0) Prothromb Time International Ratio 1.1 (0.8-1.1) White Blood Count 7.0 x10^3/uL (4.0-11.0) Red Blood Count 3.82 x10^6/uL (3.50-5.40) Hemoglobin 11.3 g/dL (12.0-15.5) Hematocrit 32.6 % (36.0-47.0) Mean Corpuscular Volume 85 fL (79-100) Mean Corpuscular Hemoglobin 30 pg (25-35) Mean Corpuscular Hemoglobin Concent 35 g/dL (31-37) Red Cell Distribution Width 13.1 % (11.5-14.5) Platelet Count 148 x10^3/uL (140-400) Neutrophils (%) (Auto) 50 % (31-73) Lymphocytes (%) (Auto) 37 % (24-48) Monocytes (%) (Auto) 11 % (0-9) Eosinophils (%) (Auto) 1 % (0-3) Basophils (%) (Auto) 0 % (0-3) Neutrophils # (Auto) 3.5 x10^3uL (1.8-7.7) Lymphocytes # (Auto) 2.6 x10^3/uL (1.0-4.8) Monocytes # (Auto) 0.8 x10^3/uL (0.0-1.1) Eosinophils # (Auto) 0.1 x10^3/uL (0.0-0.7) Basophils # (Auto) 0.0 x10^3/uL (0.0-0.2) Sodium Level 144 mmol/L (136-145) Potassium Level 3.8 mmol/L (3.5-5.1) Chloride Level 109 mmol/L (98-107) Carbon Dioxide Level 30 mmol/L (21-32) Anion Gap 5 (6-14) Blood Urea Nitrogen 10 mg/dL (7-20) Creatinine 0.7 mg/dL (0.6-1.0) Estimated GFR (Cockcroft-Gault) 102.8 BUN/Creatinine Ratio 14 (6-20) Glucose Level 79 mg/dL (70-99) Calcium Level 8.1 mg/dL (8.5-10.1) Total Bilirubin 0.3 mg/dL (0.2-1.0) Aspartate Amino Transf (AST/SGOT) 183 U/L (15-37) Alanine Aminotransferase (ALT/SGPT) 186 U/L (14-59) Alkaline Phosphatase 54 U/L (46-116) Total Protein 6.3 g/dL (6.4-8.2) Albumin 3.0 g/dL (3.4-5.0) Albumin/Globulin Ratio 0.9 (1.0-1.7) Problem List s/p lap hector ERCP today Problems: JOSTIN COELLO [employer] Jul 18, 2016 11:38
[2016-07-18] MEDS ORDERED: PROPOFOL 20 ML IV ONE (11:53)
[2016-07-18] MEDS ORDERED: DEXAMETHASONE SOD PHOS 20 MG/5 ML VIAL. ONE (11:53)
[2016-07-18] MEDS ORDERED: ONDANSETRON PF 4 MG/2 ML VIAL. ONE (11:53)
[2016-07-18] MEDS ORDERED: FAMOTIDINE 20 MG/2 ML VIAL ONE (11:53)
[2016-07-18] MEDS ORDERED: LIDOCAINE 2% PF Vial for OR 5 ML VIAL. ONE (11:53)
[2016-07-18] MEDS ORDERED: SUCCINYLCHOLINE 200 MG/10 ML VIAL. ONE (12:22)
--- NOTE | 2016-07-18 13:35 | PDOC4 ---
PROCEDURE Procedure ERCP/ES/Balloon sweep Ind: abnormal IOC Meds: GET per anesthesia Findings: E not well seen. G, D normal w/i limits of scope. Minor papilla noted and normal. Major papilla: perhaps mildly traumatized. CBD: opacified to bifurcation. No apparent cystic duct leak. No definite stone seen. ES done and balloon sweep x 3. No stone seen to exit (though could have popped downstream). PD not attempted. Marin. well. IMP: choledocholithiasis, resolved either with us or spontaneously. REC: OK to feed, dismiss at your discretion. No ASA, NSAIDs for 2 weeks. F/u with me prn. Thanks. PAT BEAN MD Jul 18, 2016 13:35
--- NOTE | 2016-07-18 13:37 | PATHOLOGY ---
PATHOLOGY REPORT * * * * * * * * FINAL DIAGNOSIS: Gallbladder, laparoscopic cholecystectomy: - Cholelithiasis. - Cholesterolosis. - Acute and chronic cholecystitis with eosinophils. COMMENT: There is no evidence of malignancy. REPORT ELECTRONICALLY SIGNED BY: Urbano Mayers M.D. DATE/TIME: 07/18/2016 13:37 * * * * * * * * GROSS PATHOLOGY: Received in formalin labeled "Jazmine Cristina, gallbladder and contents," is an 8.8 x 3.8 x 3.4 cm, intact gallbladder with pink-gandhi serosal surfaces. Opening the gallbladder reveals a velvety, pink-gandhi mucosa with moderate, diffuse cholesterolosis and an average wall thickness of 0.1 cm. Calculi are present displaying a yellow-gandhi and nodular to multifaceted appearance, and no masses are noted grossly. [employer] sections from the body and fundus are submitted along with the proximal margin in cassette A1. (CAA; 07/17/2016) INITIAL CPT CODE(S): A; 00745 Professional services performed [place] [address] Technical services performed by [facility] at [address] [place] [address] [address], [place] [address]. SPECIMEN(S) RECEIVED: A.Gallbladder and contents CLINICAL HISTORY: Acute cholecystitis PATIENT: JAZMINE CRISTINA /AGE: 911/09/1990 (Age: 25) PATIENT #: [id number] ALT CASE #: SPECIMEN COLLECTION DATE: 07/16/2016 SPECIMEN RECEIVED DATE: 07/16/2016 [facility] - [address] [place] [address] - PHONE: [phone] * * * END OF REPORT * * *
[2016-07-18] MEDS: MORPHINE SULFATE 2 MG/ML DISP.SYRIN. IV PRN (13:55)
[2016-07-18] MEDS: oxyCODONE/APAP 5/325 1 TAB TABLET PO PRN ×2 (17:28→22:14)
[2016-07-18] MEDS ORDERED: OXYC1TAB7 PO (19:47)
--- NOTE | 2016-07-18 19:52 | PDOC ---
PROGRESS NOTES Chief Complaint Chief Complaint Cholecystitis ASSESSMENT AND PLAN: 1. Cholecystitis: s/p lap CCY on 07/[address] Hernandez. recovering appropriately ERCP for suspected stone in CBD today: no stone visualized 2. Nausea: improved, tolerating PO diet. antiemetics PRN 3. ?GERD: PPI 4. Dispo: home in AM History of Present Illness History of Present Illness pain controlled Vitals Vitals Vital Signs Date Time Temp Pulse Resp B/P (MAP) Pulse Ox O2 Delivery O2 Flow Rate FiO2 07/18/16 19:33 98.1 67 18 113/78 (90) 95 Room Air 98.1 07/18/16 18:46 8.0 Physical Exam General: Alert, Oriented X3, Cooperative, No acute distress Heart: Regular rate, Normal S1, Normal S2, No murmurs Lungs: Clear Abdomen: Soft, Other (incisional TTP) Extremities: No clubbing, No cyanosis Skin: No rashes Labs LABS Laboratory Tests Test 07/18/16 08:35 White Blood Count 7.0 x10^3/uL (4.0-11.0) Red Blood Count 3.82 x10^6/uL (3.50-5.40) Hemoglobin 11.3 g/dL (12.0-15.5) Hematocrit 32.6 % (36.0-47.0) Mean Corpuscular Volume 85 fL (79-100) Mean Corpuscular Hemoglobin 30 pg (25-35) Mean Corpuscular Hemoglobin Concent 35 g/dL (31-37) Red Cell Distribution Width 13.1 % (11.5-14.5) Platelet Count 148 x10^3/uL (140-400) Neutrophils (%) (Auto) 50 % (31-73) Lymphocytes (%) (Auto) 37 % (24-48) Monocytes (%) (Auto) 11 % (0-9) Eosinophils (%) (Auto) 1 % (0-3) Basophils (%) (Auto) 0 % (0-3) Neutrophils # (Auto) 3.5 x10^3uL (1.8-7.7) Lymphocytes # (Auto) 2.6 x10^3/uL (1.0-4.8) Monocytes # (Auto) 0.8 x10^3/uL (0.0-1.1) Eosinophils # (Auto) 0.1 x10^3/uL (0.0-0.7) Basophils # (Auto) 0.0 x10^3/uL (0.0-0.2) Sodium Level 144 mmol/L (136-145) Potassium Level 3.8 mmol/L (3.5-5.1) Chloride Level 109 mmol/L (98-107) Carbon Dioxide Level 30 mmol/L (21-32) Anion Gap 5 (6-14) Blood Urea Nitrogen 10 mg/dL (7-20) Creatinine 0.7 mg/dL (0.6-1.0) Estimated GFR (Cockcroft-Gault) 102.8 BUN/Creatinine Ratio 14 (6-20) Glucose Level 79 mg/dL (70-99) Calcium Level 8.1 mg/dL (8.5-10.1) Total Bilirubin 0.3 mg/dL (0.2-1.0) Aspartate Amino Transf (AST/SGOT) 183 U/L (15-37) Alanine Aminotransferase (ALT/SGPT) 186 U/L (14-59) Alkaline Phosphatase 54 U/L (46-116) Total Protein 6.3 g/dL (6.4-8.2) Albumin 3.0 g/dL (3.4-5.0) Albumin/Globulin Ratio 0.9 (1.0-1.7) SOFIA AC MD Jul 18, 2016 19:51
[2016-07-19 03:43] VITALS: BP 108/65
[2016-07-19 07:00] VITALS: BP 115/77
[2016-07-19] MEDS: PANTOPRAZOLE 40 MG TABLET.DR. PO SCH (08:27)
--- NOTE | 2016-07-19 09:46 | PDOC ---
SURGICAL PROGRESS NOTE Subjective tolerating clears no n/v pain managed ready to go home Vital Signs Vital Signs Date Time Temp Pulse Resp B/P (MAP) Pulse Ox O2 Delivery O2 Flow Rate FiO2 07/19/16 07:00 98.1 73 20 115/77 (90) 97 Room Air 98.1 07/18/16 18:46 8.0 I&O Intake and Output 07/19/16 07:00 Intake Total 290 ml Output Total 1310 ml Balance -1020 ml Intake Oral 290 ml Output Urine Total 1310 ml # Voids 5 General: Alert, Oriented X3, Cooperative, No acute distress Abdomen: Soft, No tenderness, Other (ND, lap sites c/d/i, no erythema ) Labs Laboratory Tests Test 07/17/16 11:50 07/18/16 08:35 Prothrombin Time 13.2 SEC (11.7-14.0) Prothromb Time International Ratio 1.1 (0.8-1.1) White Blood Count 7.0 x10^3/uL (4.0-11.0) Red Blood Count 3.82 x10^6/uL (3.50-5.40) Hemoglobin 11.3 g/dL (12.0-15.5) Hematocrit 32.6 % (36.0-47.0) Mean Corpuscular Volume 85 fL (79-100) Mean Corpuscular Hemoglobin 30 pg (25-35) Mean Corpuscular Hemoglobin Concent 35 g/dL (31-37) Red Cell Distribution Width 13.1 % (11.5-14.5) Platelet Count 148 x10^3/uL (140-400) Neutrophils (%) (Auto) 50 % (31-73) Lymphocytes (%) (Auto) 37 % (24-48) Monocytes (%) (Auto) 11 % (0-9) Eosinophils (%) (Auto) 1 % (0-3) Basophils (%) (Auto) 0 % (0-3) Neutrophils # (Auto) 3.5 x10^3uL (1.8-7.7) Lymphocytes # (Auto) 2.6 x10^3/uL (1.0-4.8) Monocytes # (Auto) 0.8 x10^3/uL (0.0-1.1) Eosinophils # (Auto) 0.1 x10^3/uL (0.0-0.7) Basophils # (Auto) 0.0 x10^3/uL (0.0-0.2) Sodium Level 144 mmol/L (136-145) Potassium Level 3.8 mmol/L (3.5-5.1) Chloride Level 109 mmol/L (98-107) Carbon Dioxide Level 30 mmol/L (21-32) Anion Gap 5 (6-14) Blood Urea Nitrogen 10 mg/dL (7-20) Creatinine 0.7 mg/dL (0.6-1.0) Estimated GFR (Cockcroft-Gault) 102.8 BUN/Creatinine Ratio 14 (6-20) Glucose Level 79 mg/dL (70-99) Calcium Level 8.1 mg/dL (8.5-10.1) Total Bilirubin 0.3 mg/dL (0.2-1.0) Aspartate Amino Transf (AST/SGOT) 183 U/L (15-37) Alanine Aminotransferase (ALT/SGPT) 186 U/L (14-59) Alkaline Phosphatase 54 U/L (46-116) Total Protein 6.3 g/dL (6.4-8.2) Albumin 3.0 g/dL (3.4-5.0) Albumin/Globulin Ratio 0.9 (1.0-1.7) Problem List s/p lap hector ERCP, reviewed note ok to dc FU 2 weeks Problems: JOSTIN COELLO APRN Jul 19, 2016 09:46
[2016-07-19] MEDS: oxyCODONE/APAP 5/325 1 TAB TABLET PO PRN (10:00)
--- NOTE | 2016-07-19 12:25 | PDOC ---
Subjective: Subjective: Seen prior to DC. No pain, "stomach gurgling," "tired." No n/v. Tolerating clears, says going to [employer] for lunch. Objective: Vital Signs: Vital Signs Date Time Temp Pulse Resp B/P (MAP) Pulse Ox O2 Delivery O2 Flow Rate FiO2 07/19/16 11:42 Room Air 07/19/16 07:00 98.1 73 20 115/77 (90) 97 98.1 07/18/16 18:46 8.0 Imaging: ERCP 07/18/16 Findings: E not well seen. G, D normal w/i limits of scope. Minor papilla noted and normal. Major papilla: perhaps mildly traumatized. CBD: opacified to bifurcation. No apparent cystic duct leak. No definite stone seen. ES done and balloon sweep x 3. No stone seen to exit (though could have popped downstream). PD not attempted. [place]. well. IMP: choledocholithiasis, resolved either with us or spontaneously. PE: GEN: NAD, dressed to leave ABD: non-tender NEURO/PSYCH: A & O 3 A/P: S/p cholecystectomy for cholelithiasis, cholecystitis Abnormal IOC S/p ERCP w/ ES/balloon sweep -- DC okay per GI. Follow-up PRN. KADEN FREITAS Jul 19, 2016 12:25
--- NOTE | 2016-07-20 05:01 | DS ---
DATE OF DISCHARGE: 07/19/2016 CHIEF COMPLAINT: Cholecystitis. HOSPITAL COURSE: The patient is a 25-year-old morbidly obese woman who presented with abdominal pain in the right upper quadrant. CT was consistent with findings of cholecystitis and she was taken to the OR for laparoscopic cholecystectomy on 07/16/2016, by Dr. Villalta. She recovered appropriately, although pain seems somewhat ____ suspicion was for persisting stone in common bile duct. She therefore underwent ERCP the following day. No stone could be visualized at that time. The patient recovered fairly well, required some pain medications, but did not have any major issues. She was ready for discharge on 07/19/2016. PHYSICAL EXAMINATION: VITAL SIGNS: Blood pressure of 113/78, heart rate of 67, respiratory rate at 18. She is afebrile. GENERAL: This is a morbidly obese 25-year-old woman, alert and oriented, very pleasant, in no acute distress. HEENT: Shows no scleral icterus. LUNGS: Clear. HEART: Regular rate and rhythm. ABDOMEN: Obese, positive bowel sounds. Laparoscopic incision is covered with clean gauze Band-Aids. EXTREMITIES: Show no edema. DISCHARGE DATE: 07/19/2016 DISCHARGE DISPOSITION: To home. DISCHARGE CONDITION: Improved. DISCHARGE DIAGNOSES: Cholecystitis, status post cholecystectomy on 07/16/2016. DISCHARGE MEDICATIONS: Please refer to MAR. DISCHARGE INSTRUCTIONS: The patient will follow up with the surgical clinic in 10-14 days. SOFIA AC MD DR: UR/nts JOB#: [id number] / [id number]
== END 2016-07-19 12:20 | disposition home or self-care (01) | DRG 418 ==
LOC: 4 NORTH 08:22
PROVIDERS: ADMIT Internal Medicine Hematology & Oncology; ATTEND Internal Medicine Hematology & Oncology
PROC: BF131ZZ Fluoroscopy of Gallbladder and Bile Ducts using Low Osmolar Contrast (ICD-10-PCS; 2016-07-16)
PROC: 0FT44ZZ Resection of Gallbladder, Percutaneous Endoscopic Approach (ICD-10-PCS; principal; 2016-07-16 12:30)
PROC: 0F798ZZ Dilation of Common Bile Duct, Via Natural or Artificial Opening Endoscopic (ICD-10-PCS; 2016-07-17)
DX: K80.62 Calculus of gallbladder and bile duct with acute cholecystitis without obstruction (principal); Z68.41 Body mass index [BMI] 40.0-44.9, adult; E66.01 Morbid (severe) obesity due to excess calories; K76.0 Fatty (change of) liver, not elsewhere classified; Z82.49 Family history of ischemic heart disease and other diseases of the circulatory system; Z83.3 Family history of diabetes mellitus; Z87.891 Personal history of nicotine dependence; Z90.89 Acquired absence of other organs
CPT/HCPCS: 36415; 74300; 74328; 80053; 80076; 85027; 85610; C1726; C1769; C1782; J0330; J0690; J1100; J1956; J2270; J2405; J2704; J2710; J3010; J3490; J7030; J7120; Q9967; S0028